=== PATIENT | male | born 1955 | race African-American/Black ===

== ENCOUNTER 2018-07-28 04:48 | Emergency (ER) | payer MEDICARE ==
--- NOTE | 2018-07-28 06:50 | CT ---
INDICATION: Mass posterior head. No trauma. TECHNIQUE: The head was scanned from the foramen magnum to the vertex without contrast. Brain and bone windows were reviewed. The ventricles and sulci are normal. The anterior falx is calcified. No intraparenchymal hemorrhage or hematoma. No extra-axial fluid collections. There is an extra-axial calcified mass in the left occipital lobe posteriorly on image 26. There is no mass effect or surrounding edema. Favor a calcified meningioma. MRI with gadolinium could be performed for further evaluation. The calvarium is intact. The visualized mastoid air cells and paranasal sinuses are clear. IMPRESSION: 1.6 x 0.6 extra-axial calcified mass in the left cerebral hemisphere posteriorly most likely a meningioma. Please note that all CT scans at this facility use dose modulation, iterative reconstruction, and/or weight-based dosing when appropriate to reduce radiation dose to as low as reasonably achievable. Dictated by Joel Costello MD @ Jul 28 2018 6:41AM Signed by Dr. Joel Costello @ Jul 28 2018 6:49AM
--- NOTE | 2018-07-28 06:50 | EDM.PDOC ---
ED HPI GENERAL MEDICAL PROBLEM - General Chief Complaint: General Stated Complaint: BUMP ON BACK OF HEAD Time Seen by Provider: 07/28/18 06:40 - History of Present Illness INITIAL COMMENTS - FREE TEXT/NARRATIVE: HISTORY AND PHYSICAL: History of present illness: Patient is 63-year-old male presents with a concern of a cyst to his occipital scalp worse over the last 4-5 days he denies fever chills nausea vomiting or other complaints. Review of systems: As per history of present illness and below otherwise all systems reviewed and negative. Past medical history: As per history of present illness and as reviewed below otherwise noncontributory. Surgical history: As per history of present illness and as reviewed below otherwise noncontributory. Social history: No reported history of drug or alcohol abuse. Family history: As per history of present illness and as reviewed below otherwise noncontributory. 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 normocephalic, pupils reactive, negative for conjunctival pallor or scleral icterus, mucous membranes moist, throat clear , neck supple, nontender, trachea midline. Lungs: Clear to auscultation, breath sounds equal bilaterally, chest nontender. Heart: S1S2, regular, negative for clicks, rubs, or JVD. Abdomen: Soft, nondistended, nontender. Negative for masses or hepatosplenomegaly. Negative for costovertebral tenderness. Pelvis: Stable nontender. Genitourinary: Deferred. Rectal: Deferred. Extremities: Atraumatic, negative for cords or calf pain. Neurovascular unremarkable. Neuro: Awake, alert, oriented. Cranial nerves II through XII unremarkable. Cerebellum unremarkable. Motor and sensory unremarkable throughout. Exam nonfocal. Diagnostics: CBC CT brain Therapeutics: None Impression: #1 subcutaneous nodule occipital scalp etiology to be determined probable sebaceous cyst Definitive disposition and diagnosis as appropriate pending reevaluation and review of above. Right Head Pain Score (Numeric/FACES): 7 - Related Data Allergies Allergy/AdvReac Type Severity Reaction Status Date / Time No Known Allergies Allergy Verified 07/28/18 04:55 Home Meds: Home Meds Atazanavir Sulfate [Reyataz] 300 mg PO DAILY 07/28/18 [History] Emtricitabine/Tenofovir [Truvada 100 mg-150 mg Tablet] 1 each PO DAILY 07/28/18 [History] Methimazole [Tapazole] 10 mg PO DAILY 07/28/18 [History] Ritonavir [Norvir] 100 mg PO DAILY 07/28/18 [History] Past Medical History Respiratory History: Reports: Pneumothorax Immunologic History: Reports: HIV, Other (See Below) Other Immunologic History: grave's disease - Infectious Disease History Infectious Disease History: Reports: Chicken Pox, Measles, Mumps Social & Family History - Tobacco Use Smoking Status *Q: Former Smoker Used Tobacco, but Quit: Yes Month/Year Tobacco Last Used: 2012 - Recreational Drug Use Recreational Drug Use: Yes Recreational Drug Type: Reports: Marijuana/Hashish Recreational Drug Use Frequency: Daily ED ROS GENERAL - Review of Systems Review Of Systems: ROS reveals no pertinent complaints other than HPI. ED EXAM, GENERAL - Physical Exam Exam: See Below (See dictation) Course - Vital Signs Text/Narrative:: I discussed with patient disposition home on antibiotics with general surgical follow-up for reevaluation and definitive treatment likely including planned excision. Patient understands and agrees Last Recorded V/S: Last Vital Signs Temp 35.9 C 07/28/18 04:53 Pulse 73 07/28/18 04:53 Resp 16 07/28/18 04:53 BP 129/107 H 07/28/18 04:53 Pulse Ox 98 07/28/18 04:53 - Orders/Labs/Meds Orders: Active Orders 24 hr Category Date Time Status Head wo Cont [CT] Stat Exams 07/28/18 05:22 Taken Labs: Laboratory Tests 07/28/18 Range/Units 05:38 WBC 8.59 (4.0-11.0) K/uL RBC 4.01 L (4.50-5.90) M/uL Hgb 13.2 (13.0-17.0) g/dL Hct 38.4 (38.0-50.0) % MCV 95.8 (80.0-98.0) fL MCH 32.9 H (27.0-32.0) pg MCHC 34.4 (31.0-37.0) g/dL RDW Std Deviation 48.0 (28.0-62.0) fl RDW Coeff of Maggy 14 (11.0-15.0) % Plt Count 230 (150-400) K/uL MPV 10.30 (7.40-12.00) fL Neut % (Auto) 67.8 (48.0-80.0) % Lymph % (Auto) 25.3 (16.0-40.0) % [place] % (Auto) 5.9 (0.0-15.0) % Eos % (Auto) 0.8 (0.0-7.0) % Baso % (Auto) 0.2 (0.0-1.5) % Neut # (Auto) 5.8 H (1.4-5.7) K/uL Lymph # (Auto) 2.2 (0.6-2.4) K/uL [place] # (Auto) 0.5 (0.0-0.8) K/uL Eos # (Auto) 0.1 (0.0-0.7) K/uL Baso # (Auto) 0.0 (0.0-0.1) K/uL Nucleated RBC % 0.0 /100WBC Nucleated RBCs # 0 K/uL Departure - Departure Time of Disposition: 06:47 Disposition: Home, Self-Care 01 Condition: Good Clinical Impression: Sebaceous cyst - Discharge Information Additional Instructions: The following information is given to patients seen in the emergency department who are being discharged to home. This information is to outline your options for follow-up care. We provide all patients seen in our emergency department with a follow-up referral. The need for follow-up, as well as the timing and circumstances, are variable depending upon the specifics of your emergency department visit. If you don't have a primary care physician on staff, we will provide you with a referral. We always advise you to contact your personal physician following an emergency department visit to inform them of the circumstance of the visit and for follow-up with them and/or the need for any referrals to a consulting specialist. The emergency department will also refer you to a specialist when appropriate. This referral assures that you have the opportunity for followup care with a specialist. All of these measure are taken in an effort to provide you with optimal care, which includes your followup. Under all circumstances we always encourage you to contact your private physician who remains a resource for coordinating your care. When calling for followup care, please make the office aware that this follow-up is from your recent emergency room visit. If for any reason you are refused follow-up, please contact the [facility] emergency department at and asked to speak to the emergency department charge nurse. [facility] Specialty Care - General Surgery Professional Building [address] [place] [address], [address] [place] [address] [place] as prescribed call to schedule appointment with general surgery above return as needed as discussed - My Orders Last 24 Hours: My Active Orders 07/28/18 05:22 Head wo Cont [CT] Stat - Assessment/Plan Last 24 Hours: My Active Orders 07/28/18 05:22 Head wo Cont [CT] Stat
== END 2018-07-28 07:50 | disposition home or self-care (01) ==
LOC: MW.ED 04:48
DX: L72.3 Sebaceous cyst (principal); Z87.891 Personal history of nicotine dependence; Z79.899 Other long term (current) drug therapy
CPT/HCPCS: 36415; 70450; 70450-26; 85025; 99284-25